=== PATIENT | female | born 1950 | race American Indian/Alaskan Native ===

== ENCOUNTER 2019-12-31 15:12 | Observation (INO) | payer MEDICARE ==
[2019-12-31 16:15] LABS: Basophils % (Auto) 0.6 % (0.0-1.8); Eosinophils # (Auto) 0.1 K/mm3 (0.0-0.4); Eosinophils % (Auto) 1.4 % (0.0-4.3); Hematocrit 43.7 % (30.3-42.9); Hemoglobin 14.2 gm/dl (10.1-14.3); Lymphocytes # (Auto) 1.5 K/mm3 (1.2-5.4); Lymphocytes % (Auto) 19.2 % (13.4-35.0); Mean Corpuscular HGB Conc 33 % (30-34); Mean Corpuscular Volume 99 fl (79-97); Monocytes # (Auto) 0.4 K/mm3 (0.0-0.8); Monocytes % (Auto) 5.2 % (0.0-7.3); Platelet Count 238 K/mm3 (140-440); Red Blood Count 4.41 M/mm3 (3.65-5.03); Red Cell Distribution Width 14.8 % (13.2-15.2)
--- NOTE | 2019-12-31 16:27 | Emergency Department Report ---
ED General Adult HPI - General Chief complaint: High BP Stated complaint: CHEST PAIN/NO DIALYSIS Time Seen by Provider: 12/31/19 15:55 Source: patient, EMS Mode of arrival: Stretcher Limitations: No Limitations - History of Present Illness Initial comments: CC: "I feel horrible, have not been to dialysis" HPI: Mrs. Nory Nettles is a 69 yo female with history of end-stage renal disease on hemodialysis Monday who presents with vomiting and generalized malaise. Patient needs hemodialysis. She has been unable to obtain hemodialysis after moving to [place] from [place] to live with her daughter who lives in [facility]. Last hemodialysis session occurred 2 weeks ago. She was unable to obtain a necessary COVID-19 test which is required by the new dialysis center. Currently patient has vomiting general malaise shortness of breath. New Dialysis Center will be [facility], Daughter lives in [place], [place] -: Gradual, week(s) (2) Severity scale (0 -10): 0 Consistency: constant Improves with: none Worsens with: none Associated Symptoms: malaise, nausea/vomiting, shortness of breath Treatments Prior to Arrival: none - Related Data Home Medications Medication Instructions Recorded Confirmed Last Taken No Known Home Medications [No 12/31/19 12/31/19 Unknown Reported Home Medications] Allergies Allergy/AdvReac Type Severity Reaction Status Date / Time aspirin Allergy Unknown Verified 12/31/19 15:35 latex Allergy Unknown Verified 12/31/19 15:35 morphine Allergy Unknown Verified 12/31/19 15:35 ED Review of Systems ROS: Stated complaint: CHEST PAIN/NO DIALYSIS Other details as noted in HPI Comment: All other systems reviewed and negative Constitutional: malaise. denies: chills, fever Respiratory: shortness of breath. denies: cough Cardiovascular: denies: chest pain, palpitations Gastrointestinal: nausea, vomiting. denies: abdominal pain ED Past Medical Hx - Past Medical History Previous Medical History?: Yes Hx Hypertension: Yes Additional medical history: ESRD - Surgical History Past Surgical History?: No - Social History Smoking Status: Current Every Day Smoker - Medications Home Medications: Home Medications Medication Instructions Recorded Confirmed Last Taken Type No Known Home Medications [No 12/31/19 12/31/19 Unknown History Reported Home Medications] ED Physical Exam - General Limitations: No Limitations General appearance: alert, in no apparent distress, other (Appears mildly ill, appears uncomfortable) - Head Head exam: Present: atraumatic, normocephalic - Eye Eye exam: Present: normal appearance - ENT ENT exam: Present: mucous membranes moist - Neck Neck exam: Present: normal inspection, full ROM - Respiratory Respiratory exam: Present: normal lung sounds bilaterally. Absent: respiratory distress, wheezes, rales, rhonchi - Cardiovascular Cardiovascular Exam: Present: normal rhythm, tachycardia, normal heart sounds, other (Right-sided Vas-Cath in place). Absent: systolic murmur, diastolic murmur, rubs, gallop - GI/Abdominal GI/Abdominal exam: Present: soft, normal bowel sounds. Absent: distended, tenderness, guarding, rebound - Extremities Exam Extremities exam: Present: normal inspection - Neurological Exam Neurological exam: Present: alert, oriented X3 - Psychiatric Psychiatric exam: Present: normal affect, normal mood - Skin Skin exam: Present: warm, dry, intact, normal color. Absent: rash ED Course Vital Signs 12/31/19 12/31/19 15:40 16:00 Temperature 97.8 F Pulse Rate 119 H 109 H Respiratory 17 24 Rate Blood Pressure 179/96 Blood Pressure 216/97 [Left] O2 Sat by Pulse 98 98 Oximetry ED Medical Decision Making - Lab Data Result diagrams: 12/31/19 15:56 12/31/19 15:56 - EKG Data -: EKG Interpreted by Wy EKG shows normal: sinus rhythm, axis, intervals, QRS complexes Rate: tachycardia - EKG Data 12/31/19 16:27 EKG obtained 1618 EKG interpreted by md Sinus tachycardia rate 110 bpm normal axis normal intervals no ST elevation - Radiology Data Radiology results: report reviewed CHEST 1 VIEW 4:24 PM INDICATION / CLINICAL INFORMATION: Dyspnea. COMPARISON: None available. FINDINGS: SUPPORT DEVICES: There is a right jugular Vas-Cath with the tip overlying the distal SVC. HEART / MEDIASTINUM: The heart size and pulmonary vasculature are normal. There is mild aortic tortuosity without aneurysm. LUNGS / PLEURA: No significant pulmonary or pleural abnormality. No pneumothorax. ADDITIONAL FINDINGS: No significant additional findings. IMPRESSION: No acute findings. - Medical Decision Making This is a 69-year-old female who presents with uremic complications after being without hemodialysis for the past 2 weeks after moving from [place] to be closer to her daughter here in [place]. She presents with vomiting generalized malaise shortness of breath. Work-up revealed areas BUN 118, creatinine 9.8, bicarbonate 11, anion gap 25, potassium 5.9 I consulted gis analyst developer Dr. Spears who will arrange emergent dialysis. Patient is admitted to the hospitalist service. Critical Care Time: Yes Critical care time in (mins) excluding proc time.: 40 Critical care attestation.: If time is entered above; I have spent that time in minutes in the direct care of this critically ill patient, excluding procedure time. 40 minutes of critical care time excluding procedures were used in the care of the patient. I came immediately to the bedside upon patient's arrival to treatment room. I obtained history from daughter per phone. I discussed treatment plan with the nursing team members. I reviewed electronic record. I kept the family member informed. Patient required multiple interventions and reassessments. I spoke with physician consultants gis analyst developer and hospitalist consultants regarding treatment plan ED Disposition Clinical Impression: End stage renal disease on dialysis, Uremia, Metabolic acidosis, Hyperkalemia Disposition: OP ADMIT IP TO THIS HOSP Is pt being admited?: Yes Does the pt Need Aspirin: No Condition: Stable
[2019-12-31 16:39] LABS: Calcium 9.1 mg/dL (8.4-10.2)
--- NOTE | 2019-12-31 16:51 | XRay Report ---
CHEST 1 VIEW 4:24 PM INDICATION / CLINICAL INFORMATION: Dyspnea. COMPARISON: None available. FINDINGS: SUPPORT DEVICES: There is a right jugular Vas-Cath with the tip overlying the distal SVC. HEART / MEDIASTINUM: The heart size and pulmonary vasculature are normal. There is mild aortic tortuo sity without aneurysm. LUNGS / PLEURA: No significant pulmonary or pleural abnormality. No pneumothorax. ADDITIONAL FINDINGS: No significant additional findings. IMPRESSION: No acute findings. Signer Name: Morgan Barr MD Signed: 12/31/2019 4:47 PM Workstation Name: [id number]
[2019-12-31] MEDS ORDERED: SODIUM CHLORIDE 0.9% 100 ML IV PRN (17:55)
--- NOTE | 2019-12-31 17:59 | Event Note ---
Date: 12/31/19 Patient from [facility]. ESRD, missed HD for about 2 weeks. Hyperkalemia, anion-gap MA. HD orders placed, talked to dialysis nurse. Full consult to follow.
--- NOTE | 2019-12-31 18:37 | History and Physical Report ---
History of Present Illness Chief complaint: I need to have dialysis History of present illness: 69 YO Female with ESRD on HD (T,R,Sa) last dialyzed 2 weeks ago, HTN, Nicotine Dependence presents to ED for evaluation. Pt states that she has been "feeling terrible" over the past 1 week with progressively worsening symptoms over the same timeframe. Patient states that she had experienced nausea, multiple episodes of vomiting, malaise. Patient acknowledges that she has been unable to undergo her routinely scheduled hemodialysis over the past 2 weeks. EMS was notified and upon arrival the patient was found to be in distress and subsequently transported to [facility] for further care and evaluation of the aforementioned symptoms. Patient seen and evaluated in the emergency department. Lab and imaging studies reviewed. Patient found to have end-stage renal disease in need of urgent hemodialysis, fluid overload, metabolic acidosis. Patient placed in observation status and admitted to medical floor. Nephrology team consulted in ED for urgent dialysis. Patient denies fever, chills, chest pain, palpitations, productive cough, skin rash, recent ill contacts, or known exposure to COVID-19. Advanced care planning conducted in the emergency department. No prior admission for review. No medication listed at time of admission for reconciliation. Past History Past Medical History: ESRD, hypertension, other (See HPI) Past Surgical History: Other (Dialysis access) Social history: single, smoking. denies: alcohol abuse, prescription drug abuse Family history: hypertension Medications and Allergies Allergies Allergy/AdvReac Type Severity Reaction Status Date / Time aspirin Allergy Unknown Verified 12/31/19 15:35 latex Allergy Unknown Verified 12/31/19 15:35 morphine Allergy Unknown Verified 12/31/19 15:35 Home Medications Medication Instructions Recorded Confirmed Last Taken Type No Known Home Medications [No 12/31/19 12/31/19 Unknown History Reported Home Medications] Active Meds: Active Medications Sodium Chloride (Nacl 0.9%) 100 mls @ 999 mls/hr IV NIDHI PRN PRN Reason: Hypotension Review of Systems Constitutional: weakness, malaise, no weight loss, no weight gain, no fever, no chills Ears, nose, mouth and throat: no ear pain, no ear discharge, no tinnitis, no decreased hearing, no nose pain Breasts: no change in shape, no swelling, no mass Cardiovascular: no chest pain, no orthopnea, no palpitations, no rapid/irregular heart beat, no edema Respiratory: no cough, no cough with sputum, no excessive sputum, no hemoptysis, no shortness of breath Gastrointestinal: nausea, vomiting, no diarrhea, no constipation, no change in bowel habits Genitourinary Female: no pelvic pain, no flank pain, no urinary frequency, no urgency Rectal: no pain, no incontinence, no bleeding Musculoskeletal: no neck stiffness, no neck pain, no shooting arm pain, no arm numbness/tingling, no low back pain Integumentary: no rash, no pruritis, no redness, no sores, no wounds Neurological: no lack of coordination Psychiatric: no anxiety, no memory loss, no change in sleep habits, no sleep disturbances, no insomnia, no hypersomnia, no change in libido Endocrine: no cold intolerance, no heat intolerance, no polyphagia, no excessive thirst, no polydipsia, no nocturia, no excessive sweating Hematologic/Lymphatic: no easy bruising, no easy bleeding Allergic/Immunologic: no urticaria, no allergic rhinitis, no wheezing Exam - Constitutional Vitals: Temp Pulse Resp BP Pulse Ox 97.8 F 109 H 24 179/96 98 12/31/19 15:40 12/31/19 16:00 12/31/19 16:00 12/31/19 16:00 12/31/19 16:00 General appearance: Present: mild distress - EENT Eyes: Present: PERRL ENT: hearing intact, clear oral mucosa - Neck Neck: Present: supple, normal ROM - Respiratory Respiratory effort: normal Respiratory: bilateral: diminished - Cardiovascular Heart Sounds: Present: S1 & S2. Absent: rub, click - Extremities Extremities: pulses symmetrical, No edema Peripheral Pulses: within normal limits - Abdominal General gastrointestinal: Present: soft, non-tender, non-distended, normal bowel sounds Female genitourinary: Present: normal - Integumentary Integumentary: Present: clear, warm, dry - Musculoskeletal Musculoskeletal: gait normal, strength equal bilaterally - Psychiatric Psychiatric: appropriate mood/affect, intact judgment & insight - Neurologic Neurologic: CNII-XII intact, moves all extremities Results - Labs CBC & Chem 7: 12/31/19 15:56 12/31/19 15:56 Labs: Abnormal lab results 12/31/19 12/31/19 Range/Units 15:56 15:56 Hct 43.7 H (30.3-42.9) % MCV 99 H (79-97) fl Seg Neutrophils % 73.6 H (40.0-70.0) % Potassium 5.9 H (3.6-5.0) mmol/L Chloride 109.9 H (98-107) mmol/L Carbon Dioxide 11 L (22-30) mmol/L BUN 118 H (7-17) mg/dL Creatinine 9.8 H (0.6-1.2) mg/dL Glucose 129 H (65-100) mg/dL Assessment and Plan - Patient Problems (1) End stage renal disease on dialysis Current Visit: Yes Status: Acute Plan to address problem: Strict I's/O, monitor urine output every shift, renal diet, avoid nephrotoxic agents, nephrology team consulted in ED for urgent dialysis. Dialysis as per renal team. (2) Hyperkalemia Current Visit: Yes Status: Acute Plan to address problem: Urgent dialysis, supportive care, no EKG changes. (3) Metabolic acidosis Current Visit: Yes Status: Acute Plan to address problem: Urgent dialysis, IV bicarbonate therapy, repeat BMP in a.m. (4) DVT prophylaxis Current Visit: Yes Status: Acute Plan to address problem: SCD to bilateral lower extremities while in bed, patient is ambulatory. (5) Advance care planning Current Visit: Yes Status: Acute Plan to address problem: Disease education conducted, patient is full code, patient acknowledges understanding and agreement with care plan. Patient counseled regarding noncompliance with dialysis. Patient is acknowledges plans to be more compliant in the future. +30 minutes.
[2019-12-31] MEDS ORDERED: ONDANSETRON 4 MG/2 ML INJ IV PRN (18:38)
[2019-12-31] MEDS ORDERED: ACETAMINOPHEN 325 MG TAB PO PRN (18:38)
[2019-12-31] MEDS ORDERED: ALTEPLASE 2 MG INJ IV ONE (19:41)
[2019-12-31] MEDS ORDERED: ALTEPLASE 2 MG INJ ONE (19:49)
[2019-12-31 20:08] LABS: Hepatitis B Surface Antigen Non-Reactive (Negative); Hepatitis C Virus Antibody Non-Reactive (NonReactive)
[2020-01-01 06:16] LABS: Albumin 3.7 g/dL (3.9-5); Calcium 8.2 mg/dL (8.4-10.2)
[2020-01-01] MEDS ORDERED: HEPARIN 10,000 UNITS/10 ML VIAL IV PRN ×2 (09:43)
[2020-01-01] MEDS ORDERED: SODIUM CHLORIDE 0.9% 100 ML IV PRN (09:43)
--- NOTE | 2020-01-01 10:50 | Discharge Summary ---
Providers - Providers Date of Admission: 12/31/19 18:38 Attending physician: DORA LIEBERMAN MD 12/31/19 17:42 Consult to Physician [CONS] Stat Comment: Dr. Bucio spoke with Dr. Matthew @ [phone] Consulting Provider: VINITA MATTHEW Physician Instructions: Reason For Exam: esrd 12/31/19 17:49 Consult to Case Management [CONS] Stat Services Needed at Discharge: Other Notified:: n Additional Physician Instructions: Patient needs a home dialysis center. Daughter prefers [address] [facility] Reason for admission: MISSED DIALYSIS Condition: Stable Hospital course: 69 YO Female with ESRD on HD (T,R,Sa) last dialyzed 2 weeks ago, HTN, Nicotine Dependence presents to ED for evaluation. Pt states that she has been "feeling terrible" over the past 1 week with progressively worsening symptoms over the same timeframe. Patient states that she had experienced nausea, multiple episodes of vomiting, malaise. Patient acknowledges that she has been unable to undergo her routinely scheduled hemodialysis over the past 2 weeks. EMS was notified and upon arrival the patient was found to be in distress and subsequently transported to [facility] for further care and evaluation of the aforementioned symptoms. Patient seen and evaluated in the emergency department. Lab and imaging studies reviewed. Patient found to have end-stage renal disease in need of urgent hemodialysis, fluid overload, metabolic acidosis. Patient placed in observation status and admitted to medical floor. Nephrology team consulted in ED for urgent dialysis. Patient denies fever, chills, chest pain, palpitations, productive cough, skin rash, recent ill contacts, or known exposure to COVID-19. Advanced care planning conducted in the emergency department. No prior admission for review. No medication listed at time of admission for reconciliation. * per patient recently moved from [place] to [place]. unable to get dialysis center because she needed covid19 secreening first and could not get appointment * states her BP is normally fine expect if she misses meds. She states she missed some but now has refills at home. * Covid test done here and is pending. she also tells me she has an outpatient dialysis center. * (1) End stage renal disease on dialysis Current Visit: Yes Status: Acute Plan to address problem: Strict I's/O, monitor urine output every shift, renal diet, avoid nephrotoxic agents, nephrology team consulted in ED for urgent dialysis. Dialysis as per renal team. (2) Hyperkalemia Current Visit: Yes Status: Acute Plan to address problem: Urgent dialysis, supportive care, no EKG changes. (3) Metabolic acidosis Current Visit: Yes Status: Acute Plan to address problem: Urgent dialysis, IV bicarbonate therapy, repeat BMP in a.m. (4) DVT prophylaxis Current Visit: Yes Status: Acute Plan to address problem: SCD to bilateral lower extremities while in bed, patient is ambulatory. (5) Advance care planning Current Visit: Yes Status: Acute Plan to address problem: Disease education conducted, patient is full code, patient acknowledges understanding and agreement with care plan. Patient counseled regarding noncompliance with dialysis. Patient is acknowledges plans to be more compliant in the future. +30 minutes. Disposition: DC-01 TO HOME OR SELFCARE Time spent for discharge: 35 MINS Core Measure Documentation - Palliative Care Palliative Care/ Comfort Measures: Not Applicable - Core Measures Any of the following diagnoses?: none Exam - Physical Exam Narrative exam: VITAL SIGNS: Reviewed. GENERAL: The patient appears normally developed, Vital signs as documented. HEAD: No signs of head trauma. EYES: Pupils are equal. Extraocular motions intact. EARS: Hearing grossly intact. MOUTH: Oropharynx is normal. NECK: No adenopathy, no JVD. CHEST: Chest with clear breath sounds bilaterally. No wheezes, rales, or rhonchi. CARDIAC: Regular rate and rhythm. S1 and S2, without murmurs, gallops, or rubs. VASCULAR: No Edema. Peripheral pulses normal and equal in all extremities. ABDOMEN: Soft, non tender and non distended. No rebound or guarding, and no masses palpated. Bowel Sounds normal. MUSCULOSKELETAL: Good range of motion of all major joints. Extremities without clubbing, cyanosis or edema. NEUROLOGIC EXAM: Alert and oriented x 3 No focal sensory or strength deficits. Speech normal. Follows commands. PSYCHIATRIC: Mood normal. SKIN: detail exam as documented in skin assessment - Constitutional Vitals: Temp Pulse Resp BP Pulse Ox 98.3 F 83 16 152/87 99 01/01/20 05:01 01/01/20 05:01 01/01/20 05:01 01/01/20 05:01 01/01/20 08:11 Plan Activity: advance as tolerated, fall precautions Diet: low fat, renal Special Instructions: record daily BP diary Additional Instructions: please continue home dose BP meds. Follow up with: JESÚS JUAREZ MD [Primary Care Provider] - 7 Days VINITA MATTHEW MD [Staff Physician] - 7 Days
--- NOTE | 2020-01-01 11:01 | Consultation ---
History of Present Illness - Reason for Consult Consult date: 01/01/20 end stage renal disease, hyperkalemia Past History Past Medical History: ESRD, hypertension, other (See HPI) Past Surgical History: Other (Dialysis access) Social history: single, smoking. denies: alcohol abuse, prescription drug abuse Family history: hypertension Medications and Allergies Allergies Allergy/AdvReac Type Severity Reaction Status Date / Time aspirin Allergy Unknown Verified 12/31/19 15:35 latex Allergy Unknown Verified 12/31/19 15:35 morphine Allergy Unknown Verified 12/31/19 15:35 Home Medications Medication Instructions Recorded Confirmed Last Taken Type No Known Home Medications [No 12/31/19 12/31/19 Unknown History Reported Home Medications] Active Meds: Active Medications Acetaminophen (Tylenol) 650 mg PO Q4H PRN PRN Reason: Pain MILD(1-3)/Fever >100.5/FOWLER Last Admin: 12/31/19 22:24 Dose: 650 mg Documented by: Heparin Sodium (Porcine) (Heparin 10,000 Units/10 Ml) 3,000 unit IV NIDHI PRN PRN Reason: hemodialysis Heparin Sodium (Porcine) (Heparin 10,000 Units/10 Ml) 1,000 unit IV NIDHI PRN PRN Reason: hemodialysis Sodium Chloride (Nacl 0.9%) 100 mls @ 999 mls/hr IV NIDHI PRN PRN Reason: Hypotension Labetalol HCl (Labetalol) 20 mg IV Q6HR PRN PRN Reason: Blood Pressure Last Admin: 12/31/19 22:24 Dose: 20 mg Documented by: Ondansetron HCl (Zofran) 4 mg IV Q8H PRN PRN Reason: Nausea And Vomiting Sodium Chloride (Sodium Chloride Flush Syringe 10 Ml) 10 ml IV BID SAKSHI Last Admin: 12/31/19 22:26 Dose: 10 ml Documented by: Sodium Chloride (Sodium Chloride Flush Syringe 10 Ml) 10 ml IV PRN PRN PRN Reason: LINE FLUSH Exam - Vital Signs Vital signs: Vital Signs Temp Pulse Resp BP Pulse Ox 97.8 F 119 H 17 216/97 98 12/31/19 15:40 12/31/19 15:40 12/31/19 15:40 12/31/19 15:40 12/31/19 15:40 Results - Lab Results 12/31/19 15:56 01/01/20 05:29 Most recent lab results Calcium 8.2 mg/dL (8.4-10.2) L 01/01/20 05:29
[2020-01-01 13:19] VITALS: BP 176/98
== END 2020-01-01 16:00 | disposition home or self-care (01) ==
LOC: ED 15:12 → 3A 18:38
PROVIDERS: ADMIT Internal Medicine; ATTEND Internal Medicine
DX: I12.0 Hypertensive chronic kidney disease with stage 5 chronic kidney disease or end stage renal disease (principal); Z20.828 Contact with and (suspected) exposure to other viral communicable diseases; N18.6 End stage renal disease; R11.2 Nausea with vomiting, unspecified; E87.2 Acidosis; E87.5 Hyperkalemia; F17.200 Nicotine dependence, unspecified, uncomplicated; Z99.2 Dependence on renal dialysis; Z91.15 Patient's noncompliance with renal dialysis; Z71.6 Tobacco abuse counseling; Z88.6 Allergy status to analgesic agent; Z88.5 Allergy status to narcotic agent; Z91.040 Latex allergy status
CPT/HCPCS: 36415; 71045; 80048; 80053; 80074; 85025; 93005; 96374; 96375; 99291; 99406; G0257; G0378; J1644; J2997; U0003

== ENCOUNTER 2020-04-22 15:58 | Observation (INO) | payer MEDICARE ==
--- NOTE | 2020-04-22 16:06 | Event Note ---
ED Screening Note Date of service: 04/22/20 Time: 16:05 ED Screening Note: Patient reports she is in end-stage renal failure patient on dialysis usually Monday but has not been dialyzed since April 14 8 days ago. She denies any symptoms but try to go to dialysis this morning they sent her here. This initial assessment/diagnostic orders/clinical plan/treatment(s) is/are subject to change based on patients health status, clinical progression and re- assessment by fellow clinical providers in the ED. Further treatment and workup at subsequent clinical providers discretion. Patient/guardian urged not to elope from the ED as their condition may be serious if not clinically assessed and managed. Initial orders include: CBC, CMP, chest x-ray
[2020-04-22 16:49] LABS: Basophils % (Auto) 0.6 % (0.0-1.8); Eosinophils # (Auto) 0.1 K/mm3 (0.0-0.4); Eosinophils % (Auto) 2.1 % (0.0-4.3); Hematocrit 29.9 % (30.3-42.9); Hemoglobin 9.9 gm/dl (10.1-14.3); Lymphocytes # (Auto) 2.4 K/mm3 (1.2-5.4); Mean Corpuscular HGB Conc 33 % (30-34); Mean Corpuscular Volume 99 fl (79-97); Monocytes # (Auto) 0.5 K/mm3 (0.0-0.8); Monocytes % (Auto) 8.1 % (0.0-7.3); Platelet Count 348 K/mm3 (140-440); Red Blood Count 3.03 M/mm3 (3.65-5.03); Red Cell Distribution Width 14.1 % (13.2-15.2)
--- NOTE | 2020-04-22 17:00 | XRay Report ---
CHEST 2 VIEWS INDICATION: missed dialysis. COMPARISON: 12/31/2019 FINDINGS: Support devices: Hemodialysis catheters tip in superior vena cava Heart: Within normal limits. Lungs: No acute air space or interstitial disease. Pleura: No significant pleural effusion. No pneumothorax. Additional findings: None. IMPRESSION: 1. No acute findings. Signer Name: Kwasi Pruitt MD Signed: 04/22/2020 4:56 PM Workstation Name: [id number]
[2020-04-22 17:02] LABS: Calcium 9.1 mg/dL (8.4-10.2)
[2020-04-22] MEDS ORDERED: ALBUTEROL 2.5 MG/3 ML NEBU IH ONE (18:21)
[2020-04-22] MEDS ORDERED: SODIUM BICARB 8.4% 50 MEQ/50 ML SYRINGE IV ONE (18:21)
[2020-04-22] MEDS ORDERED: INSULIN REGULAR, HUMAN 100 UNIT/ML 3ML VIAL IV ONE (18:21)
[2020-04-22] MEDS ORDERED: DEXTROSE 50% IN WATER (25GM) 50 ML SYRINGE IV ONE (18:21)
[2020-04-22] MEDS ORDERED: CALCIUM GLUCONATE 1,000 MG in SODIUM CHLORIDE 0.9% 100 ML IV ONE (18:21)
[2020-04-22] MEDS ORDERED: FUROSEMIDE 40 MG/4 ML INJ IV ONE (18:45)
[2020-04-22] MEDS ORDERED: SODIUM POLYSTYRENE 15 GM/60 ML ORAL LIQD PO ONE (18:45)
--- NOTE | 2020-04-22 18:54 | Emergency Department Report ---
ED General Adult HPI - General Chief complaint: Medical Clearance Stated complaint: BLURRY VISION Time Seen by Provider: 04/22/20 18:19 Source: patient Mode of arrival: Ambulatory Limitations: No Limitations - History of Present Illness Initial comments: 69-year-old female with a past medical history of end-stage renal disease on dialysis Monday, Monday, Monday, borderline GERD, and HIV presents to the hospital with complaints of needing labs because she missed dialysis. Patient missed "1 dialysis session" and states that her last dialysis [facility]. She denies today however, was told she would need to go to the ER because she needed labs performed. Patient shortness of breath or pain. Patient cannot recall the name of her syruper. Pt does not c/o blurred vision during my evaluation - Related Data Home Medications Medication Instructions Recorded Confirmed Last Taken Sevelamer Carbonate [Renvela] 1 tab PO DAILY 04/08/20 04/08/20 Unknown Previous Rx's Medication Instructions Recorded Last Taken Type AtorvaSTATin [Lipitor] 40 mg PO QHS #30 tab 02/17/20 Unknown Rx Clopidogrel [Plavix] 75 mg PO QDAY #30 02/17/20 Unknown Rx Metoprolol [Lopressor TAB] 50 mg PO BID #60 tablet 02/17/20 Unknown Rx Pantoprazole [Protonix TAB] 40 mg PO QDAY 30 Days #30 02/17/20 Unknown Rx carvediloL [Coreg] 6.25 mg PO BID #60 02/17/20 Unknown Rx lisinopriL [Zestril TAB] 10 mg PO QDAY #30 02/17/20 Unknown Rx Allergies Allergy/AdvReac Type Severity Reaction Status Date / Time aspirin Allergy Unknown Verified 04/22/20 16:03 latex Allergy Unknown Verified 04/22/20 16:03 morphine Allergy Unknown Verified 04/22/20 16:03 ED Review of Systems ROS: Stated complaint: BLURRY VISION Other details as noted in HPI Comment: All other systems reviewed and negative ED Past Medical Hx - Past Medical History Hx Hypertension: Yes Hx Heart Attack/AMI: No Hx Congestive Heart Failure: No Hx Diabetes: Yes (BORDERLINE-DIET CONTROLLED) Hx GERD: Yes Hx Liver Disease: No Hx Renal Disease: Yes (mwf) Hx Sickle Cell Disease: No Hx Headaches / Migraines: No Hx Seizures: No Hx Kidney Stones: No Hx Asthma: No Hx COPD: No Hx Tuberculosis: No Hx HIV: Yes (DX-20 YRS AGO-NEVER TOOK MEDICATIONS???) Additional medical history: ESRD - Surgical History Hx Coronary Stent: No Hx Pacemaker: No Hx Internal Defibrillator: No Additional Surgical History: hd shunt - Social History Smoking Status: Current Every Day Smoker Substance Use Type: None - Medications Home Medications: Home Medications Medication Instructions Recorded Confirmed Last Taken Type AtorvaSTATin [Lipitor] 40 mg PO QHS #30 tab 02/17/20 Unknown Rx Clopidogrel [Plavix] 75 mg PO QDAY #30 02/17/20 Unknown Rx Metoprolol [Lopressor TAB] 50 mg PO BID #60 tablet 02/17/20 Unknown Rx Pantoprazole [Protonix TAB] 40 mg PO QDAY 30 Days #30 02/17/20 Unknown Rx carvediloL [Coreg] 6.25 mg PO BID #60 02/17/20 Unknown Rx lisinopriL [Zestril TAB] 10 mg PO QDAY #30 02/17/20 Unknown Rx Sevelamer Carbonate [Renvela] 1 tab PO DAILY 04/08/20 04/08/20 Unknown History ED Physical Exam - General Limitations: No Limitations - Other Other exam information: General: No acute distress Head: Atraumatic Eyes: normal appearance ENT: Moist mucous membranes Neck: Normal appearance, no midline tenderness Chest: Clear to auscultation bilaterally CV: Regular rate and rhythm Abdomen: Soft, normal bowel sounds, nontender, nondistended, no rebound or guarding Back: Normal inspection Extremity: Normal inspection, full range of motion, no leg edema Neuro: Alert O x 3, no facial asymmetry, speech clear, no gross motor sensory deficit Psych: Appropriate behavior Skin: No rash ED Course Vital Signs 04/22/20 04/22/20 04/22/20 16:08 19:45 20:00 Temperature 97.8 F 97.8 F Pulse Rate 92 H 83 87 Respiratory 18 25 H Rate Blood Pressure 185/83 151/73 166/78 O2 Sat by Pulse 100 Oximetry O2 Sat by Pulse 100 Oximetry [ Anterior Bilateral Throughout] 04/22/20 04/22/20 04/22/20 20:15 20:30 20:45 Temperature Pulse Rate 89 90 88 Respiratory Rate Blood Pressure 161/114 165/90 168/89 O2 Sat by Pulse Oximetry O2 Sat by Pulse Oximetry [ Anterior Bilateral Throughout] 04/22/20 04/22/20 04/22/20 21:00 21:15 21:30 Temperature Pulse Rate 95 H 90 90 Respiratory Rate Blood Pressure 163/87 163/80 139/75 O2 Sat by Pulse Oximetry O2 Sat by Pulse Oximetry [ Anterior Bilateral Throughout] 04/22/20 04/22/20 04/22/20 21:45 22:00 22:15 Temperature Pulse Rate 94 H 100 H 95 H Respiratory Rate Blood Pressure 142/76 144/75 157/79 O2 Sat by Pulse Oximetry O2 Sat by Pulse Oximetry [ Anterior Bilateral Throughout] 04/22/20 04/22/20 04/22/20 22:30 22:45 23:00 Temperature Pulse Rate 95 H 98 H 99 H Respiratory Rate Blood Pressure 146/77 157/73 153/77 O2 Sat by Pulse Oximetry O2 Sat by Pulse Oximetry [ Anterior Bilateral Throughout] 04/22/20 23:15 Temperature Pulse Rate 97 H Respiratory Rate Blood Pressure 149/82 O2 Sat by Pulse Oximetry O2 Sat by Pulse Oximetry [ Anterior Bilateral Throughout] - Reevaluation(s) Reevaluation #1: 04/22/20 23:54 Was informed at this time the patient has not received the medications were ordered for hyperkalemia. However, was also informed that she is already completed dialysis. I instructed nurse to cancel all orders that I ordered several hours ago for hyperkalemia since dialysis is now complete - Consultations Consultation #1: 04/22/20 19:[address] Pearson (nephrology group from previous admission) agrees to manage patient recommends emergent dialysis. ED Medical Decision Making - Lab Data Result diagrams: 04/22/20 16:15 04/22/20 16:15 Lab Results 04/22/20 04/22/20 Range/Units 16:15 16:15 WBC 6.3 (4.5-11.0) K/mm3 RBC 3.03 L (3.65-5.03) M/mm3 Hgb 9.9 L (10.1-14.3) gm/dl Hct 29.9 L (30.3-42.9) % MCV 99 H (79-97) fl MCH 33 H (28-32) pg MCHC 33 (30-34) % RDW 14.1 (13.2-15.2) % Plt Count 348 (140-440) K/mm3 Lymph % (Auto) 38.0 H (13.4-35.0) % [place] % (Auto) 8.1 H (0.0-7.3) % Eos % (Auto) 2.1 (0.0-4.3) % Baso % (Auto) 0.6 (0.0-1.8) % Lymph # (Auto) 2.4 (1.2-5.4) K/mm3 [place] # (Auto) 0.5 (0.0-0.8) K/mm3 Eos # (Auto) 0.1 (0.0-0.4) K/mm3 Baso # (Auto) 0.0 (0.0-0.1) K/mm3 Seg Neutrophils % 51.2 (40.0-70.0) % Seg Neutrophils # 3.2 (1.8-7.7) K/mm3 Sodium 140 (137-145) mmol/L Potassium 6.8 H* (3.6-5.0) mmol/L Chloride 108.1 H (98-107) mmol/L Carbon Dioxide 16 L (22-30) mmol/L Anion Gap 23 mmol/L BUN 104 H (7-17) mg/dL Creatinine 9.6 H (0.6-1.2) mg/dL Estimated GFR 5 ml/min BUN/Creatinine Ratio 11 % Glucose 132 H (65-100) mg/dL Calcium 9.1 (8.4-10.2) mg/dL - EKG Data -: EKG Interpreted by Co EKG shows normal: sinus rhythm, ST-T waves (no stemi/ no t peak waves) Rate: normal - Radiology Data Radiology results: report reviewed (cxr: naf) - Medical Decision Making pt missed dialysis and requires emergent dialysis. Case d/w Dr Pearson nephrology who will provide emergent dialysis, Pt tx with hyperkalemic meds (refused albuterol because it makes her vomit). Dr Zarate hospitalist informed. Critical Care Time: No Critical care attestation.: If time is entered above; I have spent that time in minutes in the direct care of this critically ill patient, excluding procedure time. ED Disposition Clinical Impression: Missed dialysis, ESRD needing dialysis, Hyperkalemia, Uremia Disposition: OP ADMIT IP TO THIS HOSP Is pt being admited?: Yes Condition: Stable Time of Disposition: 19:23 (Dr zarate/etiennet)
[2020-04-22] MEDS ORDERED: SODIUM CHLORIDE 0.9% 100 ML IV PRN (19:14)
--- NOTE | 2020-04-22 19:24 | History and Physical Report ---
History of Present Illness Chief complaint: I need dialysis History of present illness: 69 YO Female with ESRD on HD (M,W,F) last dialyzed on 04/16/2020, HTN, Nicotine Dependence, GERD, HIV presents to ED for evaluation. Patient states that she presented to her routine dialysis center for her scheduled dialysis but was unable to receive dialysis due to prior missed dialysis appointments. Patient was instructed to seek further care at [facility] for further care and evaluation. Patient transported to [facility] via private vehicle for further care and evaluation. Patient seen and evaluated in the emergency department. All lab and imaging studies reviewed. Patient found to have end-stage renal disease secondary to missed dialysis, as well as fluid overload. Patient placed in observation status and admitted to medical floor. Nephrology team consulted in ED for urgent dialysis.Patient denies fever, chills, chest pain, palpitations, productive cough, skin rash, recent ill contacts, or known exposure to COVID-19. Advanced care planning conducted in the emergency department. Prior admission on 02/14/2020 reviewed. All medication listed at time of admission has been reconciled. Past History Past Medical History: ESRD, GERD, HIV/AIDS, hypertension, other (See HPI) Past Surgical History: Other (Dialysis access) Social history: single, smoking Family history: hypertension Medications and Allergies Allergies Allergy/AdvReac Type Severity Reaction Status Date / Time aspirin Allergy Unknown Verified 04/22/20 16:03 latex Allergy Unknown Verified 04/22/20 16:03 morphine Allergy Unknown Verified 04/22/20 16:03 Home Medications Medication Instructions Recorded Confirmed Last Taken Type AtorvaSTATin [Lipitor] 40 mg PO QHS #30 tab 02/17/20 Unknown Rx Clopidogrel [Plavix] 75 mg PO QDAY #30 02/17/20 Unknown Rx Metoprolol [Lopressor TAB] 50 mg PO BID #60 tablet 02/17/20 Unknown Rx Pantoprazole [Protonix TAB] 40 mg PO QDAY 30 Days #30 02/17/20 Unknown Rx carvediloL [Coreg] 6.25 mg PO BID #60 02/17/20 Unknown Rx lisinopriL [Zestril TAB] 10 mg PO QDAY #30 02/17/20 Unknown Rx Sevelamer Carbonate [Renvela] 1 tab PO DAILY 04/08/20 04/08/20 Unknown History Active Meds: Active Medications Sodium Chloride (Nacl 0.9%) 100 mls @ 999 mls/hr IV NIDHI PRN PRN Reason: Hypotension Review of Systems Constitutional: no weight loss, no weight gain, no fever, no chills Ears, nose, mouth and throat: no ear pain, no ear discharge, no tinnitis, no decreased hearing, no nose pain Breasts: no change in shape Cardiovascular: no orthopnea, no rapid/irregular heart beat, no edema, no lightheadedness Respiratory: no cough, no excessive sputum, no hemoptysis, no shortness of breath Gastrointestinal: no vomiting, no diarrhea, no change in bowel habits, no hematemesis Genitourinary Female: no pelvic pain, no flank pain, no dysuria, no urinary frequency Rectal: no pain, no incontinence Musculoskeletal: no neck stiffness, no neck pain, no shooting arm pain, no low back pain Integumentary: no rash, no pruritis, no redness, no sores, no wounds Neurological: no weakness, no parathesias, no numbness, no tingling, no seizures Psychiatric: no anxiety, no memory loss, no sleep disturbances, no hypersomnia, no change in appetite, no change in libido Endocrine: no cold intolerance, no polyphagia, no excessive thirst, no polydi psia, no polyuria, no flushing Hematologic/Lymphatic: no easy bruising, no easy bleeding, no lymphadenopathy Allergic/Immunologic: no allergic rhinitis, no wheezing, no persistent infections, no anaphylaxis Exam - Constitutional Vitals: Temp Pulse Resp BP Pulse Ox 97.8 F 92 H 18 185/83 100 04/22/20 16:08 04/22/20 16:08 04/22/20 16:08 04/22/20 16:08 04/22/20 16:08 General appearance: Present: mild distress - EENT Eyes: Present: PERRL ENT: hearing intact, clear oral mucosa - Neck Neck: Present: supple, normal ROM - Respiratory Respiratory effort: normal Respiratory: bilateral: CTA - Cardiovascular Heart Sounds: Present: S1 & S2. Absent: rub, click - Extremities Extremities: pulses symmetrical, No edema Peripheral Pulses: within normal limits - Abdominal General gastrointestinal: Present: soft, non-tender, non-distended, normal bowel sounds Female genitourinary: Present: normal - Integumentary Integumentary: Present: clear, warm, dry - Musculoskeletal Musculoskeletal: gait normal, strength equal bilaterally - Psychiatric Psychiatric: appropriate mood/affect, intact judgment & insight - Neurologic Neurologic: CNII-XII intact, moves all extremities Results - Labs CBC & Chem 7: 04/22/20 16:15 04/22/20 16:15 Labs: Abnormal lab results 04/22/20 04/22/20 Range/Units 16:15 16:15 RBC 3.03 L (3.65-5.03) M/mm3 Hgb 9.9 L (10.1-14.3) gm/dl Hct 29.9 L (30.3-42.9) % MCV 99 H (79-97) fl MCH 33 H (28-32) pg Lymph % (Auto) 38.0 H (13.4-35.0) % [place] % (Auto) 8.1 H (0.0-7.3) % Potassium 6.8 H* (3.6-5.0) mmol/L Chloride 108.1 H (98-107) mmol/L Carbon Dioxide 16 L (22-30) mmol/L BUN 104 H (7-17) mg/dL Creatinine 9.6 H (0.6-1.2) mg/dL Glucose 132 H (65-100) mg/dL Assessment and Plan - Patient Problems (1) End stage renal disease Current Visit: Yes Status: Acute Plan to address problem: Nephrology team consulted in ED, dialysis as per renal team, strict I's/O, monitor urine output every shift, avoid nephrotoxic agents. (2) Fluid overload Current Visit: Yes Status: Acute Plan to address problem: Supportive care, urgent dialysis. Monitor fluid status. (3) Hypertension Current Visit: Yes Status: Acute Qualifiers: Hypertension type: essential hypertension Qualified Code(s): I10 - Essenti al (primary) hypertension Plan to address problem: Monitor blood pressure every shift, continue medical management. (4) Gastroesophageal reflux disease Current Visit: Yes Status: Acute Qualifiers: Esophagitis presence: without esophagitis Qualified Code(s): K21.9 - Gastro-esophageal reflux disease without esophagitis Plan to address problem: PPI therapy, supportive care. (5) DVT prophylaxis Current Visit: No Status: Acute Plan to address problem: SCD to bilateral lower extremities while in bed, patient is ambulatory. (6) Advance care planning Current Visit: No Status: Acute Plan to address problem: Disease education conducted, patient is full code, care plan discussed, prognosis discussed, patient knowledges understanding and agreement with care plan, +30 minutes.
[2020-04-22] MEDS ORDERED: ONDANSETRON 4 MG/2 ML INJ IV PRN (19:25)
[2020-04-22] MEDS ORDERED: ALBUTEROL 2.5 MG/3 ML NEBU IH PRN (19:25)
[2020-04-22] MEDS ORDERED: ACETAMINOPHEN 325 MG TAB PO PRN (19:25)
[2020-04-22 21:10] LABS: Hepatitis B Surface Antigen Non-Reactive (Negative); Hepatitis C Virus Antibody Non-Reactive (NonReactive)
[2020-04-23] MEDS: carvediloL 6.25 MG TAB PO SCH ×2 (00:13→09:46)
[2020-04-23] MEDS: METOPROLOL TARTRATE 50 MG TAB PO SCH ×2 (00:14→09:46)
[2020-04-23 03:06] VITALS: BP 169/80
--- NOTE | 2020-04-23 07:30 | Consultation ---
History of Present Illness - History of Present Illness Thank you for the consultation Patient was evaluated today around My assessment and plan are as follows End-stage renal disease: Patient is currently on maintenance hemodialysis and was admitted after missing nearly 2-3 dialysis treatment patient has had dialysis yesterday and is currently feeling much better he wants to go home And wants to go to her dialysis center which she has tablet already and that she told me. She also told me that she has to leave today anyway Throughout the interview she was very rude Anemia in end-stage renal disease to monitor hemoglobin and hematocrit periodically erythropoietin as needed, further workup may be required depending on the hemoglobin Bone mineral disorder and secondary hyperparathyroidism: Monitor phosphorus and PTH level periodically Dialysis Access: Currently working well no acute issues noted , has had catheter change approximately 6 months ago Advised her to consider a fistula patient is not enthusiastic about that #Admitted with hyperkalemia which was concerning patient has been counseled and educated she has missed dialysis treatment which makes her mortality risk very high she was advised not to miss any dialysis treatment Diet and nutrition: Patient advised to maintain 1200 cc fluid restriction needs to be on protein: 1.5 g/kg body weight daily, supplement should be considered Current lab results were explained to the patient at length in simple [place] and patient does have clear understanding All dialysis-related questions have been answered to the patient discussed with hospital medicine service patient is suitable for discharge from renal standpoint to follow up with her dialysis center More than 35 minutes were spent in direct patient care today at the bedside, Author: Jason Antonio M.D. [facility], [address] [place] [address] Tel; [phone] History of present illness 69-year-old -Pak[place] female who has been admitted here after missing dialysis treatments noted to be hyperkalemic and was somewhat symptomatic yesterday, currently she is status post dialysis and has been feeling well has no complaints of any nausea vomiting her current access is a central venous catheter patient currently does not have a fistula. She told me that she already has a dialysis clinic established with [facility] but does not know the address but she is aware that she can start her dialysis this week. She wants to leave the hospital. She was very rude throughout the interview and it was very hard to obtain history from her she is a very poor historian She has recently moved from [place] Past medical history: ESRD Noncompliance Hypertension Currently does not have a fistula Anemia in end-stage renal disease Bone mineral disorder and secondary hyperparathyroidism HIV, AIDS GERD Current allergies: Reviewed from the current chart Social history: Reviewed from the current chart Family history: Reviewed from the current chart Review of system: Positive for generalized weakness fatigue some nausea upon admission currently much improved doing well All other review of systems negative Physical examination Vitals: Reviewed General: No acute distress HEENT: Oral mucosa moist no pallor or icterus Neck: Supple without any JVD thyromegaly or nodular mass Chest: Clear to auscultation central venous catheter site unremarkable Heart: Regular rate and rhythm S1-S2 heard no S3-S4 Abdomen: Soft nontender, bowel sounds present no renal bruit no suprapubic masses no CVA tenderness noted Extremity: Minimal edema dry skin no peripheral cyanosis Endocrine: Thyroid not enlarged Psychiatric: No agitation and aggression noted Musculoskeletal: No joint effusion noted Labs and x-rays: Reviewed from this admission Past History Past Medical History: ESRD, GERD, HIV/AIDS, hypertension, other (See HPI) Past Surgical History: Other (Dialysis access) Social history: single, smoking Family history: hypertension Medications and Allergies Allergies Allergy/AdvReac Type Severity Reaction Status Date / Time aspirin Allergy Unknown Verified 04/22/20 16:03 latex Allergy Unknown Verified 04/22/20 16:03 morphine Allergy Unknown Verified 04/22/20 16:03 Home Medications Medication Instructions Recorded Confirmed Last Taken Type AtorvaSTATin [Lipitor] 40 mg PO QHS #30 tab 02/17/20 04/23/20 Unknown Rx Clopidogrel [Plavix] 75 mg PO QDAY #30 02/17/20 04/23/20 Unknown Rx Metoprolol [Lopressor TAB] 50 mg PO BID #60 tablet 02/17/20 04/23/20 Unknown Rx Pantoprazole [Protonix TAB] 40 mg PO QDAY 30 Days #30 02/17/20 04/23/20 Unknown Rx carvediloL [Coreg] 6.25 mg PO BID #60 02/17/20 04/23/20 Unknown Rx lisinopriL [Zestril TAB] 10 mg PO QDAY #30 02/17/20 04/23/20 Unknown Rx Sevelamer Carbonate [Renvela] 1 tab PO DAILY 04/08/20 04/23/20 Unknown History Active Meds: Active Medications Acetaminophen (Acetaminophen 325 Mg Tab) 650 mg PO Q4H PRN PRN Reason: Pain MILD(1-3)/Fever >100.5/FOWLER Albuterol (Albuterol 2.5 Mg/3 Ml Nebu) 2.5 mg IH Q4HRT PRN PRN Reason: Shortness Of Breath Atorvastatin Calcium (Atorvastatin 40 Mg Tab) 40 mg PO QHS [facility] Last Admin: 04/23/20 00:14 Dose: 40 mg Documented by: Carvedilol (Carvedilol 6.25 Mg Tab) 6.25 mg PO BID [facility] Last Admin: 04/23/20 00:13 Dose: 6.25 mg Documented by: Clopidogrel Bisulfate (Clopidogrel 75 Mg Tab) 75 mg PO QDAY [facility] Sodium Chloride (Nacl 0.9%) 100 mls @ 999 mls/hr IV NIDHI PRN PRN Reason: Hypotension Lisinopril (Lisinopril 10 Mg Tab) 10 mg PO QDAY [facility] Metoprolol Tartrate (Metoprolol Tartrate 50 Mg Tab) 50 mg PO BID [facility] Last Admin: 04/23/20 00:14 Dose: 50 mg Documented by: Ondansetron HCl (Ondansetron 4 Mg/2 Ml Inj) 4 mg IV Q8H PRN PRN Reason: Nausea And Vomiting Pantoprazole Sodium (Pantoprazole 40 Mg Tab) 40 mg PO QDAY [facility] Sevelamer Carbonate (Sevelamer Carbonate 800 Mg Tab) 800 mg PO DAILY [facility] Sodium Chloride (Sodium Chloride 0.9% 10 Ml Flush Syringe) 10 ml IV BID [facility] Last Admin: 04/23/20 00:54 Dose: Not Given Documented by: Sodium Chloride (Sodium Chloride 0.9% 10 Ml Flush Syringe) 10 ml IV PRN PRN PRN Reason: LINE FLUSH Exam - Vital Signs Vital signs: Vital Signs Temp Pulse Resp BP Pulse Ox 97.8 F 92 H 18 185/83 100 04/22/20 16:08 04/22/20 16:08 04/22/20 16:08 04/22/20 16:08 04/22/20 16:08 Results - Lab Results 04/22/20 16:15 04/23/20 04:51 Most recent lab results Calcium 8.0 mg/dL (8.4-10.2) L 04/23/20 04:51
--- NOTE | 2020-04-23 08:22 | Progress Note ---
Assessment and Plan Assessment and plan: End stage renal disease Nephrology following, dialysis as per renal team, strict I's/O, monitor urine output every shift, avoid nephrotoxic agents. Fluid overload Supportive care, urgent dialysis. Monitor fluid status. Hypertension Monitor blood pressure every shift, continue medical management. Gastroesophageal reflux disease PPI therapy, supportive care. DVT prophylaxis SCD to bilateral lower extremities while in bed, patient is ambulatory. History Interval history: No new issues overnight. Hospitalist Physical - Constitutional Vitals: Temp Pulse Resp BP Pulse Ox 97.5 F L 90 20 169/80 98 04/23/20 01:12 04/23/20 01:12 04/23/20 01:27 04/23/20 01:12 04/23/20 04:20 General appearance: Present: mild distress - EENT Eyes: Present: PERRL, EOM intact ENT: hearing intact, clear oral mucosa, dentition normal - Neck Neck: Present: supple, normal ROM - Respiratory Respiratory effort: normal Respiratory: bilateral: CTA - Cardiovascular Rhythm: regular Heart Sounds: Present: S1 & S2. Absent: gallop, rub - Extremities Extremities: no ischemia, No edema, Full ROM - Abdominal General gastrointestinal: soft, non-tender, non-distended, normal bowel sounds - Integumentary Integumentary: Present: clear, warm, dry - Neurologic Neurologic: CNII-XII intact, moves all extremities Results - Labs CBC & Chem 7: 04/22/20 16:15 04/23/20 04:51 Labs: Laboratory Last Values WBC 6.3 K/mm3 (4.5-11.0) 04/22/20 16:15 RBC 3.03 M/mm3 (3.65-5.03) L 04/22/20 16:15 Hgb 9.9 gm/dl (10.1-14.3) L 04/22/20 16:15 Hct 29.9 % (30.3-42.9) L 04/22/20 16:15 MCV 99 fl (79-97) H 04/22/20 16:15 MCH 33 pg (28-32) H 04/22/20 16:15 MCHC 33 % (30-34) 04/22/20 16:15 RDW 14.1 % (13.2-15.2) 04/22/20 16:15 Plt Count 348 K/mm3 (140-440) 04/22/20 16:15 Lymph % (Auto) 38.0 % (13.4-35.0) H 04/22/20 16:15 [place] % (Auto) 8.1 % (0.0-7.3) H 04/22/20 16:15 Eos % (Auto) 2.1 % (0.0-4.3) 04/22/20 16:15 Baso % (Auto) 0.6 % (0.0-1.8) 04/22/20 16:15 Lymph # (Auto) 2.4 K/mm3 (1.2-5.4) 04/22/20 16:15 [place] # (Auto) 0.5 K/mm3 (0.0-0.8) 04/22/20 16:15 Eos # (Auto) 0.1 K/mm3 (0.0-0.4) 04/22/20 16:15 Baso # (Auto) 0.0 K/mm3 (0.0-0.1) 04/22/20 16:15 Seg Neutrophils % 51.2 % (40.0-70.0) 04/22/20 16:15 Seg Neutrophils # 3.2 K/mm3 (1.8-7.7) 04/22/20 16:15 Sodium 140 mmol/L (137-145) 04/23/20 04:51 Potassium 4.7 mmol/L (3.6-5.0) D 04/23/20 04:51 Chloride 104.7 mmol/L (98-107) 04/23/20 04:51 Carbon Dioxide 21 mmol/L (22-30) L 04/23/20 04:51 Anion Gap 19 mmol/L 04/23/20 04:51 BUN 46 mg/dL (7-17) H 04/23/20 04:51 Creatinine 5.5 mg/dL (0.6-1.2) H 04/23/20 04:51 Estimated GFR 9 ml/min 04/23/20 04:51 BUN/Creatinine Ratio 8 % 04/23/20 04:51 Glucose 184 mg/dL (65-100) H 04/23/20 04:51 Calcium 8.0 mg/dL (8.4-10.2) L 04/23/20 04:51 Hepatitis A IgM Ab Non-reactive (NonReactive) 04/22/20 20:37 Hep Bs Antigen Non-reactive (Negative) 04/22/20 20:37 Hep B Core IgM Ab Non-reactive (NonReactive) 04/22/20 20:37 Hepatitis C Antibody Non-reactive (NonReactive) 04/22/20 20:37 Valentin/IV: Voiding Method Toilet IV Catheter Type [Right Chest] Peripheral IV IV Catheter Type [Right Peripheral IV Subclavian] Active Medications - Current Medications Current Medications: Generic Name Dose Route Start Last Admin Trade Name Freq PRN Reason Stop Dose Admin Acetaminophen 650 mg 04/22/20 19:25 Acetaminophen 325 Mg Tab PO Q4H PRN Pain MILD(1-3)/Fever >100.5/FOWLER Albuterol 2.5 mg 04/22/20 19:25 Albuterol 2.5 Mg/3 Ml Nebu IH Q4HRT PRN Shortness Of Breath Atorvastatin Calcium 40 mg 04/22/20 22:00 04/23/20 00:14 Atorvastatin 40 Mg Tab PO 40 mg QHS SAKSHI Administration Carvedilol 6.25 mg 04/22/20 22:00 04/23/20 00:13 Carvedilol 6.25 Mg Tab PO 6.25 mg BID SAKSHI Administration Clopidogrel Bisulfate 75 mg 04/23/20 10:00 Clopidogrel 75 Mg Tab PO QDAY [facility] Sodium Chloride 100 mls @ 999 mls/hr 04/22/20 19:14 Nacl 0.9% IV NIDHI PRN Hypotension Lisinopril 10 mg 04/23/20 10:00 Lisinopril 10 Mg Tab PO QDAY [facility] Metoprolol Tartrate 50 mg 04/22/20 22:00 04/23/20 00:14 Metoprolol Tartrate 50 Mg Tab PO 50 mg BID SAKSHI Administration Ondansetron HCl 4 mg 04/22/20 19:25 Ondansetron 4 Mg/2 Ml Inj IV Q8H PRN Nausea And Vomiting Pantoprazole Sodium 40 mg 04/23/20 10:00 Pantoprazole 40 Mg Tab PO QDAY [facility] Sevelamer Carbonate 800 mg 04/23/20 10:00 Sevelamer Carbonate 800 Mg Tab PO DAILY SAKSHI Sodium Chloride 10 ml 04/22/20 22:00 04/23/20 00:54 Sodium Chloride 0.9% 10 Ml Flush Syringe IV Not Given BID SAKSHI Sodium Chloride 10 ml 04/22/20 19:25 Sodium Chloride 0.9% 10 Ml Flush Syringe IV PRN PRN LINE FLUSH
[2020-04-23] MEDS ORDERED: LISINOPRIL 10 MG TAB PO SCH (10:00)
[2020-04-23] MEDS ORDERED: CLOPIDOGREL 75 MG TAB PO SCH (10:00)
[2020-04-23] MEDS ORDERED: SEVELAMER CARBONATE 800 MG TAB PO SCH (10:00)
[2020-04-23] MEDS ORDERED: PANTOPRAZOLE 40 MG TAB PO SCH (10:00)
--- NOTE | 2020-04-23 11:05 | Discharge Summary ---
Providers - Providers Date of Admission: 04/22/20 20:18 Date of discharge: 04/23/20 Attending physician: ZEINAB HAYS 04/22/20 19:12 Consult to Physician [CONS] Urgent Comment: Consulting Provider: WILLIAM SUTTON Physician Instructions: Reason For Exam: esrd, missed dialysis, hyperkalemia Primary care physician: HAT MAKER Hospitalization Reason for admission: missed HD Condition: Stable Hospital course: 69 YO Female with ESRD on HD (M,W,F) last dialyzed on 04/16/2020, HTN, Nicotine Dependence, GERD, HIV presents to ED for evaluation. Patient states that she presented to her routine dialysis center for her scheduled dialysis but was unable to receive dialysis due to prior missed dialysis appointments. Patient was instructed to seek further care at [facility] for further care and evaluation. Patient transported to [facility] via private vehicle for further care and evaluation. Patient seen and evaluated in the emergency department. All lab and imaging studies reviewed. Patient found to have end-stage renal disease secondary to missed dialysis, as well as fluid overload. Patient placed in observation status and admitted to medical floor. Nephrology team consulted in ED for urgent dialysis. Nephrology initiated hemodialysis and patient's respiratory status stabilized. Patient had no other issues and was felt to have received maximal hospital benefit for discharge. Dedicated discharge time 35 minutes. Disposition: - TO HOME OR SELFCARE Time spent for discharge: 35 - Discharge Diagnoses (1) ESRD needing dialysis Status: Acute (2) Fluid overload Status: Acute (3) Hyperkalemia Status: Acute (4) Hypertension Status: Acute Qualifiers: Hypertension type: essential hypertension Qualified Code(s): I10 - Essential (primary) hypertension (5) Missed dialysis Status: Acute (6) Uremia Status: Acute Core Measure Documentation - Palliative Care Palliative Care/ Comfort Measures: Not Applicable - Core Measures Any of the following diagnoses?: none Exam - Constitutional Vitals: Temp Pulse Resp BP Pulse Ox 97.5 F L 90 20 169/80 98 04/23/20 01:12 04/23/20 01:12 04/23/20 01:27 04/23/20 01:12 04/23/20 08:47 General appearance: Present: no acute distress, well-nourished - EENT Eyes: Present: PERRL ENT: hearing intact, clear oral mucosa - Neck Neck: Present: supple, normal ROM - Respiratory Respiratory effort: normal Respiratory: bilateral: CTA - Cardiovascular Heart Sounds: Present: S1 & S2. Absent: rub, click - Extremities Extremities: pulses symmetrical, No edema Peripheral Pulses: within normal limits - Abdominal General gastrointestinal: Present: soft, non-tender, non-distended, normal bowel sounds Female genitourinary: Present: normal - Integumentary Integumentary: Present: clear, warm, dry - Musculoskeletal Musculoskeletal: gait normal, strength equal bilaterally - Psychiatric Psychiatric: appropriate mood/affect, intact judgment & insight - Neurologic Neurologic: CNII-XII intact, moves all extremities Plan Activity: advance as tolerated Weight Bearing Status: Weight Bear as Tolerated Diet: renal Follow up with: PRIMARY CARE, [Primary Care Provider] - 7 Days
== END 2020-04-23 11:34 | disposition home or self-care (01) ==
LOC: ED 15:58 → 3A 20:18
PROVIDERS: ADMIT Internal Medicine; ATTEND Hospitalist
DX: I12.0 Hypertensive chronic kidney disease with stage 5 chronic kidney disease or end stage renal disease (principal); N18.6 End stage renal disease; E87.70 Fluid overload, unspecified; K21.9 Gastro-esophageal reflux disease without esophagitis; E87.5 Hyperkalemia; F17.200 Nicotine dependence, unspecified, uncomplicated; Z99.2 Dependence on renal dialysis; Z79.82 Long term (current) use of aspirin; Z21 Asymptomatic human immunodeficiency virus [HIV] infection status
CPT/HCPCS: 36415; 71046; 80048; 80074; 85025; 93005; 94644; 99285; A9270; G0378; G0257; J0610

== ENCOUNTER 2020-06-09 06:11 | Day surgery (SDC) | payer MEDICARE ==
[~2020-06-09 06:11] MED LIST: ceFAZolin/Water 2 GM/20 ML 2 GM/20 ML SYRINGE IV NR
[2020-06-09 08:53] LABS: Hematocrit 27.5 % (30.3-42.9); Hemoglobin 9.3 gm/dl (10.1-14.3); Mean Corpuscular HGB Conc 34 % (30-34); Mean Corpuscular Volume 95 fl (79-97); Platelet Count 343 K/mm3 (140-440); Red Blood Count 2.89 M/mm3 (3.65-5.03); Red Cell Distribution Width 14.1 % (13.2-15.2)
[2020-06-09 09:38] LABS: Calcium 8.6 mg/dL (8.4-10.2)
[2020-06-09] MEDS ORDERED: SODIUM CHLORIDE 0.9% 1000 ML 1,000 ML IV SCH (10:00)
[2020-06-09] MEDS ORDERED: ONDANSETRON 4 MG/2 ML INJ IV PRN (10:48)
[2020-06-09] MEDS ORDERED: HYDROmorphone 1 MG/1 ML INJ IV PRN ×2 (10:48)
--- NOTE | 2020-06-09 11:22 | Anesthesia Day of Surgery ---
Anesthesia Day of Surgery - Day of Surgery Patient Examined: Yes Patient H&P Reviewed: Yes Patient is NPO: Yes
[2020-06-09 12:31] VITALS: BP 131/62
[2020-06-09] MEDS ORDERED: HEPARIN 10,000 UNITS/10 ML VIAL ONE (12:58)
[2020-06-09] MEDS ORDERED: BUPIVACAINE/PF (0.5%) 5 MG/1 ML 30 ML VIAL INFILTRATI ONE (12:58)
[2020-06-09] MEDS ORDERED: LIDOCAINE MPF (2%) 20 MG/1 ML VIAL 5 ML ONE (12:58)
[2020-06-09] MEDS ORDERED: MIDAZOLAM 2 MG/2 ML INJ ONE (12:58)
[2020-06-09] MEDS ORDERED: propofoL 200 MG/20 ML VIAL IV ONE ×3 (12:59)
[2020-06-09] MEDS ORDERED: SODIUM CHLORIDE 0.9% 500 ML 0 ML ONE (12:59)
--- NOTE | 2020-06-09 14:05 | Event Note ---
Date: 06/09/20 The patient was scheduled for Left AV Graft Creation at 12:15 pm today. She was told to arrive at the hospital at 09:30 am however she arrived at 06:11 secondary to transportation issues. She became upset that she had to wait for her schedule OR time and began to curse at the staff. I went to speak to her after my second case however she was already dressed. She was angry and cursing stating that she would be traveling to [place] on the and would have someone create her access there. I explained the situation and that she was the next patient but she did not wish to discuss it and decided to sign out AMA. I will inform her information systems security officer Dr. Jason Antonio.
== END 2020-06-09 06:12 | disposition home or self-care (01) ==
LOC: OR 06:11
PROVIDERS: ATTEND Surgery Vascular Surgery
DX: I12.0 Hypertensive chronic kidney disease with stage 5 chronic kidney disease or end stage renal disease (principal); N18.6 End stage renal disease; E78.00 Pure hypercholesterolemia, unspecified; G47.30 Sleep apnea, unspecified; D64.9 Anemia, unspecified; K21.9 Gastro-esophageal reflux disease without esophagitis; Z53.8 Procedure and treatment not carried out for other reasons; Z90.710 Acquired absence of both cervix and uterus; Z87.440 Personal history of urinary (tract) infections; Z72.89 Other problems related to lifestyle; Z98.890 Other specified postprocedural states; Z98.891 History of uterine scar from previous surgery; Z86.73 Personal history of transient ischemic attack (TIA), and cerebral infarction without residual deficits
CPT/HCPCS: 36415; 80048; 85027; J7030; J0690; J1644; J2250; J2704; J7040

== ENCOUNTER 2020-07-13 11:47 | Emergency (ER) | payer MEDICARE ==
[2020-07-13] MEDS ORDERED: hydrALAZINE 20 MG/1 ML INJ IV ONE (12:07)
--- NOTE | 2020-07-13 12:09 | Emergency Department Report ---
HPI - General Chief Complaint: High BP Time Seen by Provider: 07/13/20 11:51 - HPI HPI: This is a 69-year-old -[place] female presents to the emergency department via EMS from her dialysis clinic with complaint of very elevated blood pressure. Due to this elevated blood pressure the patient was unable to get dialysis today. She does have a history of end-stage renal disease on hemodialysis on Monday/Monday/Monday, as well as a history of some anemia, hypertension. The patient's faith healer is listed as Dr. Villela. She denies any chest pain, shortness of breath, or any other physical complaints at this time other than feeling "tired." The patient received 2 different doses of Catapres 0.1 mg at the clinic without any improvement. She says that she did take her home blood pressure medications this morning including lisinopril, h ydralazine and nifedipine. ED Past Medical Hx - Past Medical History Hx Hypertension: Yes Hx Heart Attack/AMI: No Hx Congestive Heart Failure: No Hx Diabetes: Yes (BORDERLINE DIET CONTROLLED) Hx GERD: Yes Hx Liver Disease: No Hx Renal Disease: Yes (mwf) Hx Sickle Cell Disease: No Hx Kidney Stones: No Hx Asthma: No Hx COPD: No Hx Tuberculosis: Yes Hx HIV: Yes Additional medical history: ESRD - Surgical History Hx Coronary Stent: No Hx Pacemaker: No Hx Internal Defibrillator: No Additional Surgical History: hd shunt - Social History Smoking Status: Current Every Day Smoker - Medications Home Medications: Home Medications Medication Instructions Recorded Confirmed Last Taken Type AtorvaSTATin [Lipitor] 40 mg PO QHS #30 tab 02/17/20 05/26/20 Unknown Rx Clopidogrel [Plavix] 75 mg PO QDAY #30 02/17/20 05/26/20 Unknown Rx Metoprolol [Lopressor TAB] 50 mg PO BID #60 tablet 02/17/20 05/26/20 Unknown Rx Pantoprazole [Protonix TAB] 40 mg PO QDAY 30 Days #30 02/17/20 05/26/20 Unknown Rx carvediloL [Coreg] 6.25 mg PO BID #60 02/17/20 05/26/20 Unknown Rx lisinopriL [Zestril TAB] 10 mg PO QDAY #30 02/17/20 05/26/20 Unknown Rx Sevelamer Carbonate [Renvela] 1 tab PO DAILY 04/08/20 05/26/20 Unknown History ED Review of Systems ROS: Stated complaint: HYPERTENSION Other details as noted in HPI Comment: All other systems reviewed and negative Constitutional: denies: chills, fever Eyes: denies: eye pain, vision change ENT: denies: ear pain, throat pain Respiratory: denies: cough, shortness of breath Cardiovascular: denies: chest pain, edema Gastrointestinal: denies: abdominal pain, vomiting Genitourinary: denies: dysuria, discharge Musculoskeletal: denies: back pain, arthralgia Skin: denies: rash, lesions Neurological: denies: headache, weakness Physical Exam - Physical Exam Physical Exam: GENERAL: The patient is well-developed well-nourished. HENT: Normocephalic. Atraumatic. Patient has moist mucous membranes. EYES: Extraocular motions are intact. NECK: Supple. Trachea is midline. CHEST/LUNGS: Clear to auscultation. There is no respiratory distress noted. Right-sided chest port. HEART/CARDIOVASCULAR: Regular. There is no tachycardia. There is no murmur. ABDOMEN: Abdomen is soft, nontender. Patient has normal bowel sounds. There is no abdominal distention. SKIN: Skin is warm and dry. NEURO: The patient is awake, alert, and oriented. The patient is cooperative. The patient has no focal neurologic deficits. Normal speech. MUSCULOSKELETAL: There is no tenderness or deformity. There is no limitation range of motion. ED Course - Reevaluation(s) Reevaluation #1: 07/13/20 14:07 Patient has been asking about eating food. I explained to the patient that if it is okay with the nephrology service and dialysis, the patient will be fed. The patient tells me that she "does not care" if it is okay with anybody and that "I will be eating before I go upstairs." After we were given the okay, the patient was given the option of a snack bag or a meal tray. She scoffed at the snack bag and once she saw the meal tray the patient has decided that she is leaving the emergency department/hospital. I had already explained to the patient that I spoke with Dr. Villela and they wanted to get her dialysis done immediately. She understands that she has elevated creatinine and BUN levels and we have been having issues with her blood pressure. The patient is awake and alert and has a normal decision-making capacity. Despite understanding the risks of leaving AMA, including uncontrolled blood pressure, shortness of breath, chest pain, arrhythmia or even sudden , the patient has still decided to leave AMA. The patient is refusing to sign an AMA form but there have been multiple witnesses, including myself, to document that the patient is oriented and leaving AMA. - Consultations Consultation #1: 07/13/20 13:[address] Villela, the patient's faith healer. He would like to get the patient dialyzed today in the hospital. Patient will be admitted to the hospitalist service. ED Medical Decision Making - Lab Data Result diagrams: 07/13/20 12:17 07/13/20 12:17 - EKG Data -: EKG Interpreted by Me EKG shows normal: sinus rhythm, axis, intervals, QRS complexes, ST-T waves (Flattening or inverted T waves to the anterolateral leads) Rate: normal - EKG Data When compared to previous EKG there are: no significant change Interpretation: unchanged when compared t (04/22/20) - Medical Decision Making This patient presented to the emergency department after she was unable to get dialysis morning secondary to an extremely elevated blood pressure level. The patient's blood pressure was still elevated with a systolic of about 230. She was given a 20 mg dose of IV hydralazine and the blood pressure came down to about 177/90. The patient's labs shows the renal insufficiency consistent with her end-stage renal disease needing dialysis. Nephrology was contacted and consulted and they decided to admit the patient has an observational stay to provide dialysis. As previously mentioned, the patient has decided to leave AMA. Nephrology has been made aware and they will let outpatient hemodialysis note to expect the patient. Critical Care Time: No Critical care attestation.: If time is entered above; I have spent that time in minutes in the direct care of this critically ill patient, excluding procedure time. ED Disposition Clinical Impression: ESRD needing dialysis, Hypertensive urgency Disposition: DC-09 OP ADMIT IP TO THIS HOSP Is pt being admited?: Yes Condition: Fair Referrals: PRIMARY CARE, [Primary Care Provider] - 3-5 Days Time of Disposition: 13:39
[2020-07-13 12:27] LABS: Basophils # (Auto) 0.1 K/mm3 (0.0-0.1); Eosinophils # (Auto) 0.2 K/mm3 (0.0-0.4); Eosinophils % (Auto) 2.2 % (0.0-4.3); Hematocrit 24.9 % (30.3-42.9); Hemoglobin 8.3 gm/dl (10.1-14.3); Lymphocytes # (Auto) 1.6 K/mm3 (1.2-5.4); Lymphocytes % (Auto) 20.4 % (13.4-35.0); Mean Corpuscular HGB Conc 33 % (30-34); Mean Corpuscular Volume 97 fl (79-97); Monocytes # (Auto) 0.7 K/mm3 (0.0-0.8); Monocytes % (Auto) 8.6 % (0.0-7.3); Platelet Count 303 K/mm3 (140-440); Red Blood Count 2.57 M/mm3 (3.65-5.03); Red Cell Distribution Width 15.7 % (13.2-15.2)
[2020-07-13 13:02] LABS: Albumin 4.1 g/dL (3.9-5); Calcium 9.2 mg/dL (8.4-10.2)
[2020-07-13 13:22] VITALS: BP 177/91
[2020-07-13] MEDS ORDERED: SODIUM CHLORIDE 0.9% 100 ML IV PRN (13:32)
[2020-07-13 15:01] LABS: Hepatitis B Surface Antigen Non-Reactive (Negative); Hepatitis C Virus Antibody Non-Reactive (NonReactive)
--- NOTE | 2020-07-17 10:14 | Electrocardiograph Report ---
[facility] Test Date: 2020-07-13 Test Time: 12:40:16 Pat Name: LANDON COTTER Department: Room: Gender: F [employer]: : 1950 Requested By: LAURA LOO Order Number: [id number] Reading MD: Dave Barclay Measurements Intervals [place] Rate: 82 P: 16 [place]: 154 QRS: 57 QRSD: 75 T: 98 QT: 398 QTc: 466 Interpretive Statements SINUS ARRHYTHMIA Abnrm T, consider ischemia, anterolateral lds No previous ECG available for comparison Electronically Signed On 07-17-2020 10:14:01 EDT by Dave Barclay
== END 2020-07-13 14:08 | disposition admitted as inpatient to this hospital (09) ==
LOC: ED 11:47 → UNDOADMOB 13:39 → 3A 13:39 → ED 14:08
DX: I16.0 Hypertensive urgency (principal); N18.6 End stage renal disease; E11.22 Type 2 diabetes mellitus with diabetic chronic kidney disease; I12.0 Hypertensive chronic kidney disease with stage 5 chronic kidney disease or end stage renal disease; Z99.2 Dependence on renal dialysis; F17.200 Nicotine dependence, unspecified, uncomplicated; Z21 Asymptomatic human immunodeficiency virus [HIV] infection status; Z79.899 Other long term (current) drug therapy
CPT/HCPCS: 36415; 80053; 80074; 85025; 93005; 96374; 99284; J0360